=== PATIENT | female | born 1995 | race Caucasian/White ===

== ENCOUNTER 2018-07-25 14:31 | Emergency (ER) | payer MEDICAID ==
[~2018-07-25] VITALS: Ht 165.1 cm; Wt 50.9 kg
[2018-07-25 14:42] VITALS: Ht 165.1 cm; Wt 50.9 kg
[2018-07-25 15:29] LABS: BASOPHILS 0.2 % (0-2); EOSINOPHILS 0.5 % (0-7); HEMATOCRIT 35.4 % (36.0-48.0); HEMOGLOBIN 12.3 g/dL (12-16); IMMATURE GRANULOCYTES 0.2 % (0-5); LYMPHOCYTES 22.3 % (15-50); MCH 31.8 pg (26.0-34.0); MCHC 34.7 g/dL (31.0-37.0); MCV 91.5 fL (80.0-100.0); MEAN PLATELET VOLUME 11.6 fL (7.4-10.4); MONOCYTES 6.4 % (2-11); NEUTROPHILS 70.4 % (40-80); PLATELET COUNT 178 10x3/uL (130-400); RBC 3.87 10x6/uL (4.00-5.40); RDW 12.9 % (11.5-14.5)
[2018-07-25 15:32] LABS: APPEARANCE CLEAR (CLEAR); BILIRUBIN NEGATIVE (NEGATIVE); COLOR YELLOW (YELLOW); GLUCOSE NEGATIVE (NEGATIVE); KETONE NEGATIVE (NEGATIVE); NITRITE NEGATIVE (NEGATIVE); PROTEIN TRACE mg/dL (NEGATIVE); UROBILINOGEN NORMAL (NORMAL)
[2018-07-25 15:33] LABS: EPITHELIAL CELLS 0-5 /hpf (0-5); RED CELLS - URINE 0-5 /hpf (0-5)
[2018-07-25 15:34] LABS: AMORPHOUS SEDIMENT >1+ /lpf (NONE SEEN); BACTERIA MODERATE /hpf (NONE SEEN); MUCUS >1+ /lpf (NONE SEEN)
[2018-07-25 15:48] LABS: ALBUMIN 3.1 g/dL (3.4-5.0); ALKALINE PHOSPHATASE 55 U/L (46-116); ALT (SGPT) 15 U/L (10-68); AMYLASE - SERUM 45 U/L (25-115); BILIRUBIN - TOTAL 0.29 mg/dL (0.2-1.3); CALC OSMOLALITY 275 mosm/kg (275-300); CALCIUM 8.9 mg/dL (8.5-10.1); CARBON DIOXIDE 24.9 mmol/L (21.0-32.0); CHLORIDE - SERUM 103 mmol/L (98-107); CREATININE - SERUM 0.6 mg/dL (0.6-1.3); GLUCOSE 79 mg/dL (74-106); LIPASE 122 U/L (73-393); POTASSIUM - SERUM 3.8 mmol/L (3.5-5.1); PROTEIN - SERUM 7.4 g/dL (6.4-8.2); SODIUM 139 mmol/L (136-145); UREA NITROGEN 11 mg/dL (7-18); eGFR NON AFRICAN AMERICAN > 90 mL/min (90-120)
[2018-07-25] MEDS ORDERED: MACROBID100 MG PO (16:10)
[2018-07-25 16:27] VITALS: BP 108/66
== END 2018-07-25 16:25 | disposition home or self-care (01) ==
LOC: D.ER 14:31
PROVIDERS: Emergency Medicine
DX: O23.41 Unspecified infection of urinary tract in pregnancy, first trimester (principal); Z3A.12 12 weeks gestation of pregnancy; R10.32 Left lower quadrant pain

== ENCOUNTER → 2018-12-02 15:50 | Outpatient (CLI) | payer MEDICAID ==
[2018-07-25 14:42] VITALS: BMI 18.6
[~2018-12-02 15:50] MED LIST: MACROBID100 MG PO
== END | disposition home or self-care (01) ==
LOC: D.US 15:50
PROVIDERS: ATTEND Obstetrics & Gynecology
DX: O26.893 Other specified pregnancy related conditions, third trimester (principal); Z3A.31 31 weeks gestation of pregnancy

== ENCOUNTER 2018-12-16 14:13 | Outpatient (CLI) | payer MEDICAID ==
[2018-07-25 14:42] VITALS: BMI 18.6
[2018-12-16] MEDS ORDERED: ZOVIRAX800 MG PO (15:09)
[2018-12-16] MEDS ORDERED: AMBIEN10 MG PO (15:10)
[2018-12-16 15:15] LABS: HEMATOCRIT 37.8 % (36.0-48.0); MCH 32.2 pg (26.0-34.0); MCHC 34.4 g/dL (31.0-37.0); MCV 93.6 fL (80.0-100.0); MEAN PLATELET VOLUME 12.1 fL (7.4-10.4); RBC 4.04 10x6/uL (4.00-5.40); RDW 13.7 % (11.5-14.5); WBC 10.8 10x3/uL (4.8-10.8)
--- NOTE | 2018-12-16 15:45 | NUR ---
DR. CAMPOS NOTIFIED AND REVIEWED PT'S BEHAVIOR AND ASSESSMENT RESULTS. PT IS A LOW RISK PER DR. CAMPOS. DR. CAMPOS STATED TO GIVE RESOURCES TO PT AT TIME OF DISCHARGE. NO FURTHER ORDERS AT THIS TIME. RECOURCES REVIEWED WITH PT AND SHE VERBALIZED UNDERSTANDING.
--- NOTE | 2018-12-16 20:02 | NUR ---
ADMINISTERED PROCARDIA 10MG PO PER MD ORDERS AT THIS TIME. LINENS PROVIDED FOR SIGNIFICANT OTHER WHO STATES THAT HE WILL BE SPENDING THE NIGHT. PT DENIES OTHER NEEDS, WILL CONTINUE TO MONITOR.
[2018-12-17 06:09] LABS: RAPID PLASMA REAGIN Non Reactive (Non Reactive)
== END 2018-12-18 08:15 | disposition home or self-care (01) ==
LOC: D.LDO 14:13 → D.LD 17:57 → D.LDO 12-18 08:15
PROVIDERS: ATTEND Obstetrics & Gynecology
DX: O26.899 Other specified pregnancy related conditions, unspecified trimester (principal); Z3A.00 Weeks of gestation of pregnancy not specified

== ENCOUNTER 2018-12-21 22:56 | Outpatient (CLI) | payer MEDICAID ==
[2018-07-25 14:42] VITALS: BMI 18.6
[~2018-12-21 22:56] MED LIST changes: +AMBIEN10 MG PO; +ZOVIRAX800 MG PO
[2018-12-21] MEDS ORDERED: PRENAVITE1 TAB PO (23:13)
[2018-12-21 23:55] LABS: APPEARANCE CLEAR (CLEAR); BILIRUBIN NEGATIVE (NEGATIVE); COLOR YELLOW (YELLOW); GLUCOSE NEGATIVE (NEGATIVE); KETONE MODERATE mg/dL (NEGATIVE); NITRITE NEGATIVE (NEGATIVE); PROTEIN NEGATIVE (NEGATIVE); SPECIFIC GRAVITY 1.015 (1.005-1.020); UROBILINOGEN NORMAL (NORMAL)
== END 2018-12-22 14:45 | disposition home or self-care (01) ==
LOC: D.LDO 22:56 → D.LD 22:57 → D.LDO 12-22 14:45
PROVIDERS: ATTEND Obstetrics & Gynecology
DX: O26.899 Other specified pregnancy related conditions, unspecified trimester (principal); Z3A.00 Weeks of gestation of pregnancy not specified

== ENCOUNTER → 2018-12-26 13:14 | Outpatient (CLI) | payer MEDICAID ==
[2018-07-25 14:42] VITALS: BMI 18.6
[~2018-12-26 13:14] MED LIST changes: +PRENAVITE1 TAB PO
== END | disposition home or self-care (01) ==
LOC: D.LDO 13:14
PROVIDERS: ATTEND Obstetrics & Gynecology
DX: O36.5990 Maternal care for other known or suspected poor fetal growth, unspecified trimester, not applicable or unspecified (principal)

== ENCOUNTER → 2019-01-06 11:38 | Outpatient (CLI) | payer MEDICAID ==
[2018-07-25 14:42] VITALS: BMI 18.6
--- NOTE | 2019-01-06 12:20 | NUR ---
DR. CAMPOS NOTIFIED AND REVIEWED PT'S BEHAVIOR AND ASSESSMENT RESULTS. PT IS A LOW RISK PER DR. CAMPOS. DR. CAMPOS STATED TO GIVE RESOURCES TO PT AT TIME OF DISCHARGE. NO FURTHER ORDERS AT THIS TIME. RESOURCES REVIEWED WITH PT AND SHE VEBALIZED UNDERSTANDING.
== END | disposition home or self-care (01) ==
LOC: D.LDO 11:38
PROVIDERS: ATTEND Obstetrics & Gynecology
DX: O36.5990 Maternal care for other known or suspected poor fetal growth, unspecified trimester, not applicable or unspecified (principal)

== ENCOUNTER → 2019-01-09 14:06 | Outpatient (CLI) | payer MEDICAID ==
[2018-07-25 14:42] VITALS: BMI 18.6
== END | disposition home or self-care (01) ==
LOC: D.LDO 14:06
PROVIDERS: ATTEND Obstetrics & Gynecology
DX: O35.9XX0 Maternal care for (suspected) fetal abnormality and damage, unspecified, not applicable or unspecified (principal)

== ENCOUNTER 2019-01-22 05:33 | Inpatient (IN) | payer MEDICAID ==
[~2019-01-22] VITALS: Ht 165.1 cm; Wt 64.0 kg
[2019-01-22 06:25] VITALS: BP 119/60; Ht 165.1 cm; Wt 64.0 kg
[2019-01-22 06:28] LABS: HEMATOCRIT 36.3 % (36.0-48.0); HEMOGLOBIN 12.6 g/dL (12-16); MCH 32.1 pg (26.0-34.0); MCHC 34.7 g/dL (31.0-37.0); MCV 92.6 fL (80.0-100.0); MEAN PLATELET VOLUME 12.7 fL (7.4-10.4); RBC 3.92 10x6/uL (4.00-5.40); RDW 14.1 % (11.5-14.5); WBC 8.9 10x3/uL (4.8-10.8)
[2019-01-22 06:44] LABS: UDS - AMPHET NEGATIVE QUAL (NEGATIVE); UDS - BARB NEGATIVE QUAL (NEGATIVE); UDS - BENZO NEGATIVE QUAL (NEGATIVE); UDS - COCAINE NEGATIVE QUAL (NEGATIVE); UDS - OPIATE NEGATIVE QUAL (NEGATIVE); UDS - PCP NEGATIVE QUAL (NEGATIVE); UDS - THC NEGATIVE QUAL (NEGATIVE)
[2019-01-22 08:39] LABS: APPEARANCE SL CLDY (CLEAR); BACTERIA MODERATE /hpf (NONE SEEN); BILIRUBIN NEGATIVE (NEGATIVE); COLOR YELLOW (YELLOW); GLUCOSE NEGATIVE (NEGATIVE); KETONE NEGATIVE (NEGATIVE); MUCUS <1+ /lpf (NONE SEEN); NITRITE NEGATIVE (NEGATIVE); PROTEIN NEGATIVE (NEGATIVE); SPECIFIC GRAVITY 1.015 (1.005-1.020); UROBILINOGEN NORMAL (NORMAL); WHITE CELLS - URINE 0-5 /hpf (0-5)
[2019-01-22 19:26] VITALS: BP 101/54
--- NOTE | 2019-01-22 19:26 | NUR ---
PATIENT SITTING UP IN BED. DENIES ANY PAIN AT THIS TIME. ASSESSMENT AND VITAL SIGNS DONE AT THIS TIME. RESPIRATIONS AT EASE. LUNG SOUNDS CLEAR IN ALL GERMAIN. HEART REGULAR RATE AND RHYTHM. ABDOMEN SOFT AND NONTENDER. BOWEL SOUNDS PRESENT IN ALL QUADRANTS. FUNDUS FIRM, AT UMBILICUS, TO THE RIGHT. SMALL AMOUNT OF LOCHIA NOTED TO NIKHIL PAD. PATIENT STATES SHE STILL CANNONT MOVE HER L LEG, SAYS SHE HAS SOME FEELING IN HER R LEG. STATES SHE DOES NOT FEEL THE URGE TO VOID. IN AND OUT CATHETER INSERTED USING STERILE TECHNIQUE. OBTAINED 700 CC'S OF CLEAR YELLOW URINE. NIKHIL CARE DONE AND PADS CHANGED AT THIS TIME. FUNDUS MASSAGED. FUNDUS FIRM AND NOW MIDLINE AND 1 BELOW UMBILICUS. NO EDEMA NOTED TO BLE. EPIDURAL CATHETER NOTED TO BACK AND CAPPED OFF. NO REDNESS OR EDEMA NOTED. PATIENT DENIES ANY NEEDS AT THIS TIME. HANDED TO MOTHER TO BREASTFEED. AT BEDSIDE. BED IN LOWEST POSITION, SIDE RAILS UP X 2, C/L AND WATER WITHIN REACH.
--- NOTE | 2019-01-22 21:00 | NUR ---
PATIENT SITTING UP IN BED HOLDING INFANT. STATES SHE IS HAVING MORE FEELING IN HER LEGS AND IS ABLE TO MOVE THEM A LITTLE. STATES SHE IS STILL UNABLE TO WALK AT THIS TIME. WILL CONTINUE TO MONITOR. EPIDURAL CATHETER REMOVED AT THIS TIME WITH TIP INTACT. PATIENT TOLERATED WELL. DENIES PAIN. DENIES ANY NEEDS OR CONCERNS. BED IN LOWEST POSITION, SIDE RAILS UP X 2, C/L AND WATER WITHIN REACH.
--- NOTE | 2019-01-22 22:30 | NUR ---
PATIENT SITTING UP IN BED INFANT. DENIES PAIN. STATES SHE HAS FULL SENSATION OF HER LEGS. DENIES ANY NEEDS AT THIS TIME. AT BEDSIDE. BED IN LOWEST POSITION, SIDE RAILS UP X 2, C/L AND WATER WITHIN REACH.
--- NOTE | 2019-01-22 23:00 | NUR ---
PATIENT STATES SHE IS READY TO AMBULATE TO BATHROOM. PATIENT AMBULATED WITH ASSIST TO BATHROOM. PATIENT AMBULATED WITH STEADY GAIT. STATES HER LEGS FELT A LITTLE HEAVY, BUT AMBULATED WITHOUT DIFFICULTY. VOIDED MODERATE AMOUNT. NIKHIL CARE DONE BY PATIENT. EDUCATED PATIENT ON USE OF NIKHIL BOTTLE. PADS CHANGED. NEW GOWN APPLIED. PATIENT AMBULATED WITH ASSISTANCE TO POST ROOM 1274. PATIENT AMBULATED WITH STEADY GAIT. ORIENTED PATIENT TO NEW ROOM AND CALL SYSTEM. PATIENT DENIES ANY FURTHER NEEDS. INSTRUCTED PATIENT TO CALL FOR ASSISTANCE BEFORE GETTING UP. PATIENT VERBALIZED UNDERSTANDING. BED IN LOWEST POSITION, SIDE RAILS UP X 2, C/L AND WATER WITHIN REACH.
--- NOTE | 2019-01-23 01:00 | NUR ---
PATIENT SITTING UP IN BED HOLDING INFANT. PLACED IN OPEN CRIB AND AMBULATED TO BATHROOM WITH STEADY GAIT. PATIENT AMBULATED WITHOUT DIFFICULTY STATING SHE HAS FULL SENSATION OF LEGS WITH AMBULATION. PATIENT VOIDED MODERATE AMOUNT. AMBULATED BACK TO BED WITHOUT DIFFICULTY. PATIENT DENIES PAIN. DENIES ANY NEEDS OR CONCERNS. BED IN LOWEST POSITION, SIDE RAILS UP X 2, C/L AND DRINK WITHIN REACH.
--- NOTE | 2019-01-23 03:04 | NUR ---
PATIENT LYING QUIETLY IN BED. STATES PAIN 8 OUT OF 10. PRN NORCO 5/325 ADMINISTERED PO AT THIS TIME. PATIENT DENIES ANY FURTHER NEEDS. BED IN LOWEST POSITION, SIDE RAILS UP X 2, C/L AND WATER WITHIN REACH. INFANT TRANSFERRED TO NURSERY VIA OPEN CRIB AT THIS TIME.
--- NOTE | 2019-01-23 04:16 | NUR ---
PATIENT LYING QUIETLY IN BED WITH EYES CLOSED. RESPIRATIONS AT EASE. PATIENT DENIES PAIN. DENIES ANY FURTHER NEEDS. BED IN LOWEST POSITION, SIDE RAILS UP X 2, C/L AND WATER WITHIN REACH.
[2019-01-23 05:16] VITALS: BP 100/55
--- NOTE | 2019-01-23 05:16 | NUR ---
PATIENT LYING QUIETLY IN BED WITH EYES CLOSED. RESPIRATIONS AT EASE. EASILY AROUSED. VITAL SIGNS DONE AT THIS TIME. PATIENT DENIED PAIN. DENIES ANY NEEDS OR CONCERNS. BED IN LOWEST POSITION, SIDE RAILS UP X 2, C/L AND WATER WITHIN REACH.
[2019-01-23 07:14] LABS: RAPID PLASMA REAGIN Non Reactive (Non Reactive)
[2019-01-23 07:24] VITALS: BP 122/66
[2019-01-23 07:29] LABS: BASOPHILS 0.3 % (0-2); EOSINOPHILS 0.9 % (0-7); HEMATOCRIT 36.9 % (36.0-48.0); HEMOGLOBIN 12.7 g/dL (12-16); IMMATURE GRANULOCYTES 0.3 % (0-5); LYMPHOCYTES 27.7 % (15-50); MCH 32.2 pg (26.0-34.0); MCHC 34.4 g/dL (31.0-37.0); MCV 93.4 fL (80.0-100.0); MEAN PLATELET VOLUME 12.8 fL (7.4-10.4); MONOCYTES 7.3 % (2-11); NEUTROPHILS 63.5 % (40-80); PLATELET COUNT 133 10x3/uL (130-400); RBC 3.95 10x6/uL (4.00-5.40); RDW 14.1 % (11.5-14.5)
--- NOTE | 2019-01-23 07:30 | NUR ---
ASSESSMENT DONE. PT AWAKE AND HOLDING . FUNDUS FIRM- SCANT LOCHIA NOTED ON PAD. CO CRAMPING AND REQUESTING PAIN MEDICATION. RATES PAIN AN 8 ON SCALE OF 0-10.
[2019-01-23 07:37] LABS: WBC 11.7 10x3/uL (4.8-10.8)
--- NOTE | 2019-01-23 08:45 | NUR ---
UP AND ABOUT IN ROOM DESIRED. STATES THAT PAIN IS BETTER AT THIS TIME AFTER MEDICATION. DENIES NEEDS.
--- NOTE | 2019-01-23 10:30 | NUR ---
SITTING UP IN BED HOLDING . DENIES NEEDS. RATES PAIN A 3 ON SCALE OF 0-10.
[2019-01-23 15:00] VITALS: BP 116/64
--- NOTE | 2019-01-23 15:00 | NUR ---
SITTING UP IN BED TALKING WITH VISITORS. DENIES NEEDS. DENIES WANTING BED CHANGED AT THIS TIME. STATES WILL SHOWER AFTER WHILE. SUPPLIES IN ROOM FOR SHOWER.
--- NOTE | 2019-01-23 19:27 | NUR ---
SHIFT ASSESSMENT COMPLETED PER FLOWSHEET. VSS. FUNDUS FIRM, MIDLINE AND U2 WITH SMALL AMT RUBRA LOCHIA, NO CLOTS NOTED. C/O CONSTANT BACK ACHE AND ABD CRAMPING 8/10, NORCO AND MOTRIN GIVEN PER ORDER AND PT REQUEST. REPORTS THAT SHE IS VOIDING AND PASSING FLATUS WITHOUT DIFFICULTY. TRACE BLE EDEMA NOTED, PT REPORTS IMPROVEMENT IN EDEMA SINCE DELIVERY. ICE WATER PROVIDED. DENIES ADDITIONAL NEEDS, EDUCATION PROVIDED PER FLOWSHEET. POC DISCUSSED WITH PT, VERBALIZES UNDERSTANDING AND DENIES QUESTIONS. REPORTS THAT SHE WILL SHOWER ONCE SPOUSE RETURNS TO UNIT AND RN CAN CHANGE LINENS AT THAT TIME, STATES THAT SHE WILL NOTIFY RN UPON HIS RETURN TO UNIT. BED IN LOW POSITION WITH UPPER SIDE RAILS RAISED X2. CALL LIGHT AND PHONE WITHIN REACH.
[2019-01-23 19:28] VITALS: BP 116/69
--- NOTE | 2019-01-23 20:15 | NUR ---
SIGNIFICANT OTHER AT BEDSIDE. PT AMBULATORY IN ROOM, PREPARING TO SHOWER. PAIN REASSESSMENT DONE, 10/11, DENIES ADDITIONAL NEEDS AT THIS TIME. LINEN CHANGE DONE. REINFORCED USING HICLENS SOAP, VERBALIZES UNDERSTANDING. VERBALIZES USE OF CL IN BR. DENIES NEEDS. WILL CONTINUE TO MONITOR.
--- NOTE | 2019-01-23 20:47 | NUR ---
OUT OF SHOWER. SIGNIFICANT OTHER AT BEDSIDE WITH IN ARMS. DENIES NEEDS. BED IN LOW POSITION WITH UPPER SIDE RAILS RAISED X2. CALL LIGHT AND PHONE WITHIN REACH.
--- NOTE | 2019-01-23 21:37 | NUR ---
ROUNDS MADE. PT WATCHING TV. DENIES PAIN AND NEEDS AT THIS TIME. SIGNIFICANT OTHER AT BEDSIDE, SUPPORTIVE AND ATTENTIVE TO PT AND NEEDS. BED IN LOW POSITION WITH UPPER SIDE RAILS RAISED X2. CALL LIGHT AND PHONE WITHIN REACH. WILL CONTINUE TO MONITOR.
--- NOTE | 2019-01-23 22:30 | NUR ---
ROUNDS MADE. PT BF AT THIS TIME. SODA PROVIDED PER PT REQUEST. DENIES PAIN AND ADDITIONAL NEEDS. BED IN LOW POSITION WITH UPPER SIDE RAILS RAISED X2. CALL LIGHT AND PHONE WITHIN REACH. WILL CONTINUE TO MONITOR.
--- NOTE | 2019-01-23 23:26 | NUR ---
C/O INTERMITTENT BACK ACHING, 11/11. NORCO GIVEN PER ORDER AND PT REQUEST. DENIES ADDITIONAL NEEDS. SIGNIFICANT OTHER RESTING ON COUCH AT BEDSIDE. RESTING IN OPEN CRIB AT BEDSIDE. BED IN LOW POSITION WITH UPPER SIDE RAILS RAISED X2. CALL LIGHT AND PHONE WITHIN REACH. WILL CONTINUE TO MONITOR.
--- NOTE | 2019-01-24 00:18 | NUR ---
AROUSES TO DOOR OPENING. PAIN REASSESSMENT COMPLETED, 0/10. DENIES NEEDS. SIGNIFICANT OTHER RESTING ON COUCH AT BEDSIDE. REPORTS THAT NBN RN JUST CAME AND TOOK INFANT FOR VS. BED IN LOW POSITION WITH UPPER SIDE RAILS RAISED X2. CALL LIGHT AND PHONE WITHIN REACH. WILL CONTINUE TO MONITOR AND ASSIST PRN.
--- NOTE | 2019-01-24 02:22 | NUR ---
SITTING IN HIGH FOWLERS POSITION PREPARING TO BF . DENIES PAIN AND NEEDS AT THIS TIME. SIGNIFICANT OTHER RESTING ON COUCH AT BEDSIDE. BED IN LOW POSITION WITH UPPER SIDE RIALS RAISED X2. CALL LIGHT AND PHONE WITHIN REACH. WILL CONTINUE TO MONITOR AND ASSIST PRN.
--- NOTE | 2019-01-24 04:06 | NUR ---
C/O ABD CRAMPING AND INTERMITTENT BACK ACHING, 11/11. NORCO AND MOTRIN GIVEN PER ORDER AND PT REQUEST. ICE WATER GIVEN PER PT REQUEST. INFANT SKIN TO SKIN. SIGNIFICANT OTHER RESTING ON COUCH. BED IN LOW POSITION WITH UPPER SIDE RAILS RAISED X2. CALL LIGHT AND PHONE WITHIN REACH.
--- NOTE | 2019-01-24 05:05 | NUR ---
PAIN REASSESSMENT COMPLETED, 0/10. DENIES NEEDS. BED IN LOW POSITION WITH UPPER SIDE RIALS RAISED X2. CALL LIGHT AND PHONE WITHIN REACH. WILL CONTINUE TO MONITOR.
--- NOTE | 2019-01-24 06:30 | NUR ---
RESTING QUIETLY ON RIGHT SIDE WITH EYES CLOSED. RESP REGULAR AND UNLABORED, NO S/S OF DISTRESS NOTED. INFANT RESTING QUIETLY IN OPEN CRIB AT BEDSIDE. BED IN LOW POSITION WITH UPPER SIDE RIALS RAISED X2. CALL LIGHT AND PHONE WITHIN REACH. WILL CONTINUE TO MONITOR.
--- NOTE | 2019-01-24 07:31 | NUR ---
AM ASSESSMENT COMPLETED CHARTED ON FLOWSHEET. PT IS AWAKE WITH IN CRIB AT BEDSIDE. RATES PAIN AT 0/10 AND DENIES NEEDS AT THIS TIME. SHE DOES QUESTIONS WHEN SHE WOULD BE ABLE TO DISCHARGE, UNDERSTANDS THAT DR RODRIGUEZ IS ON UNIT NOW AND WOULD THEN NEED TO WAIT FOR PEDI TO D/C . SIDE RAILS UP X 2 WITH CALL LIGHT IN REACH.
--- NOTE | 2019-01-24 09:51 | NUR ---
pt denies needs at this time, rates pain at 1/10. side rails up x 2 with phone and call light in reach.
[2019-01-24] MEDS ORDERED: HYDROCODON-ACE1 EAC7 PO (09:59)
[2019-01-24] MEDS ORDERED: IBUPROFEN600 MG PO (10:03)
--- NOTE | 2019-01-24 11:51 | NUR ---
VERBAL AND WRITTEN DISCHARGE INSTRUCITONS GONE OVER AND PT STATES HER UNDERSTANDING AND DENIES QUESTIONS. ALSO GIVEN WRITTEN SCRIPT FOR NORCO 5/325MG AND MOTRIN 600MG. DENIES PAIN OR DISCOMFORT AT THIS TIME. WILL CALL AFTER INFANT DISCHARGE HAS BEEN COMPLETED.
--- NOTE | 2019-01-24 13:00 | NUR ---
Pt denies wheelchair, amb off unit with secured in carrier. Home with family member.
== END 2019-01-24 13:00 | disposition home or self-care (01) | DRG 807 ==
LOC: D.LD 05:33
PROVIDERS: ADMIT Obstetrics & Gynecology; ATTEND Obstetrics & Gynecology
PROC: 10E0XZZ Delivery of Products of Conception, External Approach (ICD-10-PCS; principal; 2019-01-22)
DX: O99.824 Streptococcus B carrier state complicating childbirth (principal); Z37.0 Single live birth; Z3A.38 38 weeks gestation of pregnancy; O99.334 Smoking (tobacco) complicating childbirth

== ENCOUNTER 2019-02-04 13:11 | Emergency (ER) | payer MEDICAID ==
[~2019-02-04] VITALS: Ht 165.1 cm; Wt 56.9 kg
[~2019-02-04 13:11] MED LIST changes: +HYDROCODON-ACE1 EAC7 PO; +IBUPROFEN600 MG PO
[2019-02-04 13:22] VITALS: Ht 165.1 cm; Wt 56.9 kg
[2019-02-04 13:45] LABS: BASOPHILS 0.2 % (0-2); EOSINOPHILS 0.1 % (0-7); HEMATOCRIT 43.5 % (36.0-48.0); HEMOGLOBIN 15.2 g/dL (12-16); IMMATURE GRANULOCYTES 0.2 % (0-5); MCH 32.9 pg (26.0-34.0); MCHC 34.9 g/dL (31.0-37.0); MCV 94.2 fL (80.0-100.0); MEAN PLATELET VOLUME 11.5 fL (7.4-10.4); MONOCYTES 9.6 % (2-11); NEUTROPHILS 77.9 % (40-80); RBC 4.62 10x6/uL (4.00-5.40); RDW 13.4 % (11.5-14.5); WBC 10.5 10x3/uL (4.8-10.8)
[2019-02-04 13:53] LABS: PLATELET COUNT 201 10x3/uL (130-400)
[2019-02-04 14:07] LABS: ALBUMIN 2.9 g/dL (3.4-5.0); ALKALINE PHOSPHATASE 109 U/L (46-116); ALT (SGPT) 19 U/L (10-68); BILIRUBIN - TOTAL 0.32 mg/dL (0.2-1.3); CALC OSMOLALITY 269 mosm/kg (275-300); CARBON DIOXIDE 26.2 mmol/L (21.0-32.0); CHLORIDE - SERUM 101 mmol/L (98-107); CREATININE - SERUM 0.7 mg/dL (0.6-1.3); GLUCOSE 74 mg/dL (74-106); POTASSIUM - SERUM 3.9 mmol/L (3.5-5.1); PROTEIN - SERUM 7.8 g/dL (6.4-8.2); SODIUM 136 mmol/L (136-145); UREA NITROGEN 11 mg/dL (7-18); eGFR NON AFRICAN AMERICAN > 90 mL/min (90-120)
[2019-02-04 14:57] LABS: APPEARANCE HAZY (CLEAR); BILIRUBIN NEGATIVE (NEGATIVE); COLOR YELLOW (YELLOW); GLUCOSE NEGATIVE (NEGATIVE); KETONE NEGATIVE (NEGATIVE); NITRITE POSITIVE (NEGATIVE); PROTEIN TRACE mg/dL (NEGATIVE); UROBILINOGEN NORMAL (NORMAL)
[2019-02-04 14:58] LABS: BACTERIA MANY /hpf (NONE SEEN); EPITHELIAL CELLS 0-5 /hpf (0-5); RED CELLS - URINE 0-5 /hpf (0-5); WHITE CELLS - URINE >50 /hpf (0-5)
[2019-02-04] MEDS ORDERED: LEVAQUIN750 MG PO (16:36)
[2019-02-04] MEDS ORDERED: TYLENOL W/CODEI1 TAB PO (16:36)
[2019-02-04] MEDS ORDERED: ZOFRAN ODT4 MG/UDTAB PO (16:38)
[2019-02-04 17:03] VITALS: BP 123/74
== END 2019-02-04 17:04 | disposition home or self-care (01) ==
LOC: D.ER 13:11
PROVIDERS: Family Medicine
DX: O90.89 Other complications of the puerperium, not elsewhere classified (principal); N12 Tubulo-interstitial nephritis, not specified as acute or chronic; R51 Headache; N39.0 Urinary tract infection, site not specified

== ENCOUNTER → 2020-08-02 09:09 | Outpatient (CLI) | payer MEDICAID ==
[2019-02-04 13:22] VITALS: BMI 20.8
[~2020-08-02 09:09] MED LIST changes: +LEVAQUIN750 MG PO; +TYLENOL W/CODEI1 TAB PO; +ZOFRAN ODT4 MG/UDTAB PO
== END | disposition home or self-care (01) ==
LOC: D.NM 09:00
PROVIDERS: ATTEND Nurse Practitioner
DX: R10.11 Right upper quadrant pain (principal)